=== PATIENT | male | born 1960 | race Caucasian/White ===

== ENCOUNTER 2017-09-28 13:42 | Outpatient (CLI) | payer OTHER ==
[~2017-09-28 13:42] MED LIST: Sodium Chloride 0.9% 15 ML NEB ONE
--- NOTE | 2017-09-28 19:13 | HP ---
DATE OF SERVICE: 09/28/2017 HISTORY OF PRESENT ILLNESS: Mr. Rasta Ramirez is a very pleasant 57-year-old gentleman who presents to the Wound Center for evaluation of an ulceration of the left lateral lower leg. The patient states that the wound has been present for approximately 3 weeks. The patient states that he was unloading wooden posts from a trailer and ran into a metal part of the trailer resulting in the wound of his left lateral lower leg. The patient states that he was out of town and so treated the wound with hydrogen peroxide and the application of Steri-Strips. The patient states that four days later when he returned home from out of town, he discontinued the Steri-Strips and was seen in [facility]. He states that at this time, he was placed on p.o. Bactrim and told to begin dressing changes of Bactroban ointment followed by a Band-Aid 3-4 times a day. The patient states that yesterday, however, he only changed the dressing once. He states that he has been leaving the wound open to air for 1-2 hours at night. The patient states he was referred to the Wound Center for further evaluation and treatment at the time of his visit in [facility]. PAST MEDICAL HISTORY: Hypertension. PAST SURGICAL HISTORY: Negative. MEDICATIONS: 1. Valsartan. 2. Amlodipine. ALLERGIES: TETRACYCLINE. SOCIAL HISTORY: Negative for tobacco use. The patient admits to the consumption of 2 beers per day for approximately 40 years. FAMILY HISTORY: Negative for diabetes mellitus or coronary artery disease. PHYSICAL EXAMINATION: VITAL SIGNS: Temperature 98.1, pulse 77, respirations 18, blood pressure 133/ 71. GENERAL: A 57-year-old gentleman sitting on table in examination room in no acute distress. HEENT: Normocephalic, atraumatic. NECK: No nuchal rigidity. CHEST: Clear to auscultation. CARDIOVASCULAR: Regular rate and rhythm. ABDOMEN: Soft. EXTREMITIES: An ulceration of the left lateral lower leg is present which measures approximately 2.9 x 1.1 cm. Dry stable eschar covers the entire wound bed. No serous or purulent drainage is associated with the wound. No erythema of the skin surrounding the wound is present. No maceration of the skin of the periwound is noted. A dorsalis pedis pulse is easily palpable on the left. Edema of the left foot and lower leg is present on exam today. Discoloration of the skin of the left lower leg is also present secondary to hemosiderin deposition. NEUROLOGIC: Grossly nonfocal. ASSESSMENT AND PLAN: 1. Chronic venous hypertension with ulceration. Silverlon, Webril, and the 3M Coban 2-layer compression system will be applied to the ulceration today. No antibiotics will be prescribed today based upon the appearance of the wound. I will see Mr. aRmirez again in one week. The patient has been asked to keep the compression wrap applied in clinic today clean and dry until his visit in 1 week. Mr. Ramirez understands and is in agreement with the preceding treatment plan. 2. Hypertension. MTDD
== END 2017-09-28 13:43 | disposition home or self-care (01) ==
LOC: WCC 13:42
PROVIDERS: ATTEND Family Medicine
DX: I87.312 Chronic venous hypertension (idiopathic) with ulcer of left lower extremity (principal); L97.829 Non-pressure chronic ulcer of other part of left lower leg with unspecified severity; I10 Essential (primary) hypertension
CPT/HCPCS: 29581; 99203; A4218; G0463

== ENCOUNTER 2017-10-05 14:43 | Outpatient (CLI) | payer OTHER ==
[~2017-10-05 14:43] MED LIST changes: +Lidocaine 2% Jelly 5 ML TUBE ONE
--- NOTE | 2017-10-05 15:51 | PRG ---
DATE OF SERVICE: 10/05/2017 HISTORY: Mr. Rasta Ramirez is a very pleasant 57-year-old gentleman who presents to the Wound Center for evaluation of an ulceration of the left lateral lower leg. The patient stated at the time of hi s initial presentation to the Wound Center that the wound had been present for approximately 3 weeks. The patient stated that he was unloading wooden post from a trailer and ran in to a metal part of t he trailer resulting in the wound of his left lateral lower leg. The patient stated that he was out of town and therefore treated the wound with hydrogen peroxide and the application of Steri-Strips. The patient stated that 4 days later when he returned home from out of town, he was seen in [facility] and discontinued the Steri-Strips. He stated that at this time, he was placed on p.o. Bactrim an d told to begin dressing changes of Bactroban ointment followed by a Band-Aid 3-4 times a day. The p atient stated that on the day prior to being seen in the Wound Center; however, he changed the dressi ng only once. Prior to being seen in the Wound Center, the patient stated he had been leaving the [facility] open to air for 1-2 hours at night. The patient stated he was referred to the Wound Center for f urther evaluation and treatment at the time of his visit in [facility]. After being seen in the [facility], the ulceration was dressed with Silverlon, Webril, and the 3M Coban 2 layer compression s ystem. PHYSICAL EXAMINATION: VITAL SIGNS: Temperature 97.9, pulse 102, respirations 19, blood pressure 142/85. EXTREMITIES: An ulceration of the left lateral lower leg is present, which measures approximately 3. 2 x 1.5 cm. Necrotic and nonviable tissue present within the wound margins was debrided with an exci sional full-thickness debridement with the use of a curette and scissors. Granulation tissue is pres ent within the wound margins. No purulent drainage is associated with the wound. No erythema of the skin surrounding the wound is present. No maceration of the skin of the periwound is noted. A dors donald pedis pulse is easily palpable on the left. No significant edema of the left foot or lower leg is present on exam today. Discoloration of the skin of the left lower leg is present secondary to he mosiderin deposition. ASSESSMENT AND PLAN: 1. Chronic venous hypertension with ulceration. Silverlon, Webril, and 3M Coban 2-layer compression system will be applied to the ulceration today. I will see Mr. Ramirez again in one week. 2. Hypertension.
== END 2017-10-05 14:44 | disposition home or self-care (01) ==
LOC: WCC 14:43
PROVIDERS: ATTEND Family Medicine
DX: I87.312 Chronic venous hypertension (idiopathic) with ulcer of left lower extremity (principal); L97.929 Non-pressure chronic ulcer of unspecified part of left lower leg with unspecified severity; I10 Essential (primary) hypertension
CPT/HCPCS: A4218

== ENCOUNTER 2017-10-12 08:13 | Outpatient (CLI) | payer OTHER ==
--- NOTE | 2017-10-12 09:11 | PRG ---
DATE OF SERVICE: 10/12/2017 HISTORY: Mr. aRsta Ramirez is a very pleasant 57-year-old gentleman who presents to the Wound Center for evaluation of an ulceration of the left lateral lower leg. The patient previously stated at the time of his initial presentation to the Wound Center that the wound had been present for approximate ly 3 weeks. The patient stated that he was unloading wooden posts from a trailer and ran into a meta l part of the trailer resulting in the wound of his left lateral lower leg. The patient stated that he was out of town and therefore treated the wound with hydrogen peroxide and the application of Ster i-Strips. The patient stated that 4 days later when he returned home from out of town, he was seen i [facility] and discontinued the Steri-Strips. He stated that at this time, he was placed on p.o. Bactrim and told to begin dressing changes of Bactroban ointment followed by a Band-Aid 3-4 times a day. The patient stated that on the day prior to being seen in the Wound Center; however, he change d the dressing only once. Prior to being seen in the Wound Center, the patient stated he had been le aving the wound open to air for 1-2 hours at night. The patient stated he was referred to the Wound Center for further evaluation and treatment at the time of his visit in [facility]. After being se en in the Wound Center, the ulceration was dressed with Silverlon, Webril, and 3M Coban 2 layer compr ession system. PHYSICAL EXAMINATION: VITAL SIGNS: Temperature 97.7, pulse 91, respirations 18, blood pressure 141/97. EXTREMITIES: An ulceration of the left lateral lower leg is present, which measures approximately 2. 7 x 1.0 cm. Granulation tissue is present within the wound margins. Necrotic and nonviable tissue p resent within the wound margins was debrided with an excisional full-thickness debridement with the u se of a curette and scissors. No purulent drainage is associated with the wound. No erythema of the skin surrounding the wound is present. No maceration of the skin of the periwound is noted. A dors donald pedis pulse is easily palpable on the left. Edema of the left lower leg is present on exam tomarco sommer. Discoloration of the skin of the left lower leg is present secondary to hemosiderin deposition. ASSESSMENT AND PLAN: 1. Chronic venous hypertension with ulceration. Promogran, Silverlon, Webril, and the 3M Coban 2-la sonia compression system will be applied to the ulceration today. I will see Mr. Ramirez again in one week. 2. Hypertension.
[2017-10-12] MEDS ORDERED: Sodium Chloride 0.9% 15 ML NEB ONE (12:00)
[2017-10-12] MEDS ORDERED: Lidocaine 2% Jelly 5 ML TUBE ONE (12:00)
== END 2017-10-12 08:14 | disposition home or self-care (01) ==
LOC: WCC 08:13
PROVIDERS: ATTEND Family Medicine
DX: I87.312 Chronic venous hypertension (idiopathic) with ulcer of left lower extremity (principal); L97.229 Non-pressure chronic ulcer of left calf with unspecified severity; I10 Essential (primary) hypertension

== ENCOUNTER 2017-10-19 08:17 | Outpatient (CLI) | payer OTHER ==
--- NOTE | 2017-10-19 08:56 | PRG ---
DATE OF SERVICE: 10/19/2017 HISTORY: Mr. Rasta Ramirez is a very pleasant 57-year-old gentleman who presents to the Wound Center for evaluation of an ulceration of the left lateral lower leg. The patient stated at the time of hi s initial presentation to the Wound Center that the wound had been present for approximately 3 weeks. The patient stated that he was unloading wooden post from a trailer and ran into a metal part of [facility] trailer resulting in the wound of his left lateral lower leg. The patient stated that he was out o [facility] and therefore treated the wound with hydrogen peroxide and the application of Steri-Strips. T he patient stated that 4 days later when he returned home from out of town. He was seen in [facility] and discontinued the Steri-Strips. He stated that at this time, he was placed on p.o. Bactrim an d told to begin dressing changes of Bactroban ointment followed by Band-Aid 3-4 times per day. The p atient stated that on the day prior to being seen in the Wound Center; however, he changed the dressi ng only once. Prior to being seen in the Wound Center, the patient stated he had been leaving the [facility] open to air for 1-2 hours at night. The patient stated he was referred to the Wound Center for f urther evaluation and treatment at the time of his visit in [facility]. After being seen in the [facility], the ulceration was dressed with Silverlon, Webril, and 3m Coban 2 layer compression syste m. Subsequently, Promogran was added to the patient's regimen. PHYSICAL EXAMINATION: VITAL SIGNS: Temperature 97.9, pulse 82, respirations 18, and blood pressure 135/71. EXTREMITIES: An ulceration of the left lateral lower leg is present which measures approximately 2.8 x 1.1 cm. Granulation tissue is present within the wound margins. Necrotic and nonviable tissue pr esent within the wound margins was debrided with an excisional full-thickness debridement with the us e of a curette. No purulent drainage is associated with the wound. No erythema of the skin surround ing the wound is present. No maceration of the skin of the periwound is noted. A dorsalis pedis pul se is easily palpable on the left. Edema of the left leg is present on exam today. Discoloration of the skin of the left lower leg is present secondary to hemosiderin deposition. ASSESSMENT AND PLAN: 1. Chronic venous hypertension with ulceration. Promogran, Silverlon, Webril, and the 3m Coban 2-la sonia compression system will be applied to the ulceration today. The patient has been instructed to d iscontinue the wrap applied in clinic today in 1 week. If the wound is still present, he is to begin dressing changes of Promogran, Silverlon, bordered gauze and an Valerio bandage on a daily basis after c leansing and irrigation until the wound has healed completely. I will see Mr. Ramirez again in two w eeks if the wound is still present at this time. 2. Hypertension.
[2017-10-19] MEDS ORDERED: Sodium Chloride 0.9% 15 ML NEB ONE (09:00)
[2017-10-19] MEDS ORDERED: Lidocaine 2% Jelly 5 ML TUBE ONE (09:00)
== END 2017-10-19 08:18 | disposition home or self-care (01) ==
LOC: WCC 08:17
PROVIDERS: ATTEND Family Medicine
DX: I87.312 Chronic venous hypertension (idiopathic) with ulcer of left lower extremity (principal)
CPT/HCPCS: 11042; A4218